=== PATIENT | female | born 1980 | race Caucasian/White ===

== ENCOUNTER 2017-01-03 10:11 | Emergency (ER) | payer OTHER ==
[~2017-01-03 10:11] MED LIST: ACET-704 PO; CEPH-264 PO; CHOL10002 PO; CYCL5TAB PO; FERR325T31 PO; HYDR-2666 PO; IBUP-1060 PO; MILN50TA PO; ONDA4TAB10 SL; PHEN-318 PO; PREG75CA PO; PROP40TA PO; SULF1TAB24 PO; UBID10CA5 PO; ZINC10LO4 PO
[2017-01-03] MEDS ORDERED: ONDANSETRON PF 4 MG/2 ML VIAL. IV ONE (10:45)
[2017-01-03] MEDS ORDERED: IV NORMAL SALINE 1000ML BAG 1,000 ML IV ONE (11:00)
[2017-01-03 11:10] LABS: BILIRUBIN,URINE NEGATIVE (NEG); GLUCOSE,URINE NEGATIVE (NEG); NITRITE,URINE NEGATIVE (NEG); PH,URINE 6.5; PROTEIN,URINE NEGATIVE (NEG-TRACE)
[2017-01-03 11:14] LABS: BASO # 0.1 x10^3/uL (0.0-0.2); BASO % 1 % (0-3); EOS % 1 % (0-3); HEMATOCRIT 43.1 % (36.0-47.0); HEMOGLOBIN 14.8 g/dL (12.0-15.5); LYMPH # 2.3 x10^3/uL (1.0-4.8); LYMPH % 24 % (24-48); MEAN CORPUSCULAR HEMOGLOBIN 33 pg (25-35); MEAN CORPUSCULAR HGB CONC 34 g/dL (31-37); MEAN CORPUSCULAR VOLUME 95 fL (79-100); MONO % 3 % (0-9); NEUT % 71 % (31-73); PLATELET COUNT 158 x10^3/uL (140-400); RED BLOOD COUNT 4.55 x10^6/uL (3.50-5.40); RED CELL DISTRIBUTION WIDTH 12.6 % (11.5-14.5); WHITE BLOOD COUNT 9.9 x10^3/uL (4.0-11.0)
[2017-01-03 11:19] LABS: RBC,URINE 0 /HPF (0-2); WBC,URINE 0 /HPF (0-4)
[2017-01-03 11:20] LABS: BACTERIA,URINE 0 /HPF (0-FEW); SQUAMOUS EPITHELIAL CELL,UR MOD /LPF
[2017-01-03 11:22] LABS: CALCIUM 9.2 mg/dL (8.5-10.1); CREATININE 0.8 mg/dL (0.6-1.0); GFR 81.6; POTASSIUM 3.9 mmol/L (3.5-5.1)
--- NOTE | 2017-01-03 11:50 | RAD ---
Indication fall, pain. An AP view of the pelvis as well as a targeted AP view and a frog leg view of the left hip were obtained. AP view of the pelvis appears unremarkable. A probable bone island is noted associated with the left ischium. Targeted views of the left hip show no additional finding. No acute bony finding is seen. IMPRESSION: No acute bony finding
[2017-01-03] MEDS ORDERED: ONDA4TAB7 PO (11:57)
[2017-01-03] MEDS ORDERED: HYDR-971 PO (11:57)
--- NOTE | 2017-01-03 11:58 | PHYS DOC ---
Past Medical History Past Medical History: Anxiety, Cancer, Depression, Endometriosis, Fibromyalgia , Migraines, UTI, Other Additional Past Medical Histor: vitamin B12 D deficiency,ovarian cancer muscle spasms,IBS Past Surgical History: Appendectomy, Tonsillectomy, Other Additional Past Surgical Histo: laparoscopy, D&C, R ovary and tube removed Additional Information: 0.25 PPD Alcohol Use: None Drug Use: None Adult General Chief Complaint Chief Complaint: MECHANICAL FALL HPI HPI 36-year-old female states she slipped and fell in the bathtub today injuring her left hip and left side of her chest. She states the pain in her chest is much worse with any movement or deep inspiration. She states her hip is very sore but she was able to stand on it for a brief period of time. She did not hit her head or lose consciousness. She states she has been feeling weak and dizzy and a little nauseous. She denies any fever chills or sweats. [] Review of Systems Review of Systems Constitutional: Denies fever or chills [] Eyes: Denies change in visual acuity, redness, or eye pain [] HENT: Denies nasal congestion or sore throat [] Respiratory: Denies cough or shortness of breath [] Cardiovascular: No additional information not addressed in HPI [] GI: Per history of present illness [] : Denies dysuria or hematuria [] Musculoskeletal: Per history of present illness [] Integument: Denies rash or skin lesions [] Neurologic: Denies headache, focal weakness or sensory changes [] Endocrine: Denies polyuria or polydipsia [] Current Medications Current Medications Current Medications Medications (Trade) Dose Ordered Sig/Mejia Start Time Stop Time Status Last Admin Dose Admin Ondansetron HCl (Zofran) 4 mg 1X ONCE 01/03/17 10:45 01/03/17 10:46 DC 01/03/17 11:03 4 MG Sodium Chloride (Iv Sodium Chloride 0.9% 1000ml Bag) 1,000 ml @ 1,000 mls/hr 1X ONCE 01/03/17 11:00 01/03/17 11:59 01/03/17 11:02 1,000 MLS/HR Allergies Allergies Allergies Coded Allergies Type Severity Reaction Last Updated Verified aspirin Allergy Intermediate 04/26/16 Yes peanut Allergy Intermediate 04/26/16 No tramadol Allergy Intermediate 04/26/16 Yes varenicline Allergy Intermediate 04/26/16 Yes Physical Exam Physical Exam Constitutional: Well developed, well nourished, no acute distress, non-toxic appearance. [] HENT: Normocephalic, atraumatic, bilateral external ears normal, oropharynx moist, no oral exudates, nose normal. [] Eyes: PERRLA, EOMI, conjunctiva normal, no discharge. [] Neck: Normal range of motion, no tenderness, supple, no stridor. [] Cardiovascular:Heart rate regular rhythm, no murmur [] Lungs & Thorax: Bilateral breath sounds clear to auscultation , left chest tender to palp no crepitus [] Abdomen: Bowel sounds normal, soft, no tenderness, no masses, no pulsatile masses. [] Skin: Warm, dry, no erythema, no rash. [] Back: No tenderness, no CVA tenderness. [] Extremities: Left hip is mildly tender to palpable over the greater trochanter there is no obvious deformity or leg shortening [] Neurologic: Alert and oriented X 3, normal motor function, normal sensory function, no focal deficits noted. [] Psychologic: Anxious. [] Current Patient Data Vital Signs Vital Signs Date Time Temp Pulse Resp B/P Pulse Ox O2 Delivery O2 Flow Rate FiO2 01/03/17 10:11 98.7 84 20 136/73 100 Room Air 98.7 Lab Values Laboratory Tests Test 01/03/17 10:39 01/03/17 10:53 01/03/17 11:03 Urine Collection Type U cath Urine Color Yellow Urine Clarity Clear Urine pH 6.5 Urine Specific [place] 1.010 Urine Protein Negativemg/dL (NEG-TRACE) Urine Glucose (UA) Negativemg/dL (NEG) Urine Ketones (Stick) Negativemg/dL (NEG) Urine Blood Negative (NEG) Urine Nitrite Negative (NEG) Urine Bilirubin Negative (NEG) Urine Urobilinogen Dipstick 1.0mg/dL (0.2 mg/dL) Urine Leukocyte Esterase Negative (NEG) Urine RBC 0/HPF (0-2) Urine WBC 0/HPF (0-4) Urine Squamous Epithelial Cells Mod/LPF Urine Transitional Epithelial Cells Occ/LPF Urine Bacteria 0/HPF (0-FEW) POC Urine HCG, Qualitative Hcg negative (Negative) White Blood Count 9.9x10^3/uL (4.0-11.0) Red Blood Count 4.55x10^6/uL (3.50-5.40) Hemoglobin 14.8g/dL (12.0-15.5) Hematocrit 43.1% (36.0-47.0) Mean Corpuscular Volume 95fL (79-100) Mean Corpuscular Hemoglobin 33pg (25-35) Mean Corpuscular Hemoglobin Concent 34g/dL (31-37) Red Cell Distribution Width 12.6% (11.5-14.5) Platelet Count 158x10^3/uL (140-400) Neutrophils (%) (Auto) 71% (31-73) Lymphocytes (%) (Auto) 24% (24-48) Monocytes (%) (Auto) 3% (0-9) Eosinophils (%) (Auto) 1% (0-3) Basophils (%) (Auto) 1% (0-3) Neutrophils # (Auto) 7.1x10^3uL (1.8-7.7) Lymphocytes # (Auto) 2.3x10^3/uL (1.0-4.8) Monocytes # (Auto) 0.3x10^3/uL (0.0-1.1) Eosinophils # (Auto) 0.1x10^3/uL (0.0-0.7) Basophils # (Auto) 0.1x10^3/uL (0.0-0.2) Sodium Level 142mmol/L (136-145) Potassium Level 3.9mmol/L (3.5-5.1) Chloride Level 107mmol/L (98-107) Carbon Dioxide Level 26mmol/L (21-32) Anion Gap 9 (6-14) Blood Urea Nitrogen 6mg/dL (7-20) L Creatinine 0.8mg/dL (0.6-1.0) Estimated GFR (Cockcroft-Gault) 81.6 Glucose Level 92mg/dL (70-99) Calcium Level 9.2mg/dL (8.5-10.1) Laboratory Tests 01/03/17 11:03 Laboratory Tests 01/03/17 11:03 EKG EKG [] Radiology/Procedures Radiology/Procedures []PROCEDURE: RIBS LEFT AND PA CHEST Indication fall, pain. AP view of the chest was obtained and is compared to an examination 04/27/2016. Films targeted to left ribs were also obtained. The chest is unremarkable. Heart size and pulmonary vessels are normal. The lungs are clear. There is no pleural fluid. There is no pneumothorax. Films targeted left ribs appear normal. IMPRESSION: Normal single view of the chest. Normal plain films left ribs. Impressions: PROCEDURE: HIP LEFT 2V WITH PELVIS Indication fall, pain. An AP view of the pelvis as well as a targeted AP view and a frog leg view of the left hip were obtained. AP view of the pelvis appears unremarkable. A probable bone island is noted associated with the left ischium. Targeted views of the left hip show no additional finding. No acute bony finding is seen. IMPRESSION: No acute bony finding Course & Med Decision Making Course & Med Decision Making Pertinent Labs and Imaging studies reviewed. (See chart for details) [] Dragon Disclaimer Dragon Disclaimer This electronic medical record was generated, in whole or in part, using a voice recognition dictation system. Departure Departure Impression: Primary Impression: Contusion of left hip Additional Impressions: Chest wall contusion Generalized weakness Nausea Disposition: 01 HOME, SELF-CARE Condition: STABLE Referrals: MIRIAM GOMEZ (PCP) Patient Instructions: Contusion, Nausea, Adult Additional Instructions: Thank you for allowing us to participate in your care today. Followup with your primary care physician in 3 days if your symptoms do not improve. Return to the emergency department you have any new or concerning findings. This should be evaluated by the primary care physician and any necessary consulting services for continued management within a few days after discharge. Return to emergency room if you have any new or concerning symptoms including but not limited to fever, chills, nausea, vomiting, intractable pain, any new rashes, chest pain, shortness of air, uncontrolled bleeding, difficulty breathing, and/or vision loss. You may have been prescribed medication that can change in your level of thinking and ability to operate machinery. These medications include hydrocodone and Ativan. Also, Benadryl has been known to do this as well. Be sure to check with your pharmacist and ask if the medications you've prescribed can affect your level of consciousness. I recommend not operating heavy machinery or driving while on medication such as these. Scripts Ondansetron Hcl (Zofran)4 Mg Tablet1 Tab PO Q8HRS PRN NAUSEA #20 TAB Prov:NO FORDE DO 01/03/17 Hydrocodone/Apap 5-325 ([place] 5-325 Tablet)1 Each Tablet1 Tab PO PRN Q6HRS PRN PAIN #20 TAB Prov:NO FORDE DO 01/03/17 Problem Qualifiers Primary Impression: Contusion of left hip Encounter type: initial encounter Qualified Code: S70.02XA - Contusion of left hip, initial encounter Additional Impressions: Chest wall contusion Encounter type: initial encounter Laterality: left Qualified Code: S20.212A - Contusion of left front wall of thorax, initial encounter NO FORDE DO Jan 03, 2017 11:58
[2017-01-03 12:07] VITALS: BP 149/83
[2017-01-03] MEDS ORDERED: FENTANYL PF 100 MCG/2 ML VIAL. ONE (12:07)
[2017-01-03] MEDS ORDERED: FENTANYL PF 100 MCG/2 ML VIAL. IV ONE (12:30)
== END 2017-01-03 12:21 | disposition home or self-care (01) ==
LOC: ER 10:11
DX: S70.02XA Contusion of left hip, initial encounter (principal); S20.212A Contusion of left front wall of thorax, initial encounter; R11.0 Nausea; R53.1 Weakness; F32.9 Major depressive disorder, single episode, unspecified; K58.9 Irritable bowel syndrome, unspecified; F41.9 Anxiety disorder, unspecified; M79.7 Fibromyalgia; G43.909 Migraine, unspecified, not intractable, without status migrainosus; Z87.440 Personal history of urinary (tract) infections; Z90.49 Acquired absence of other specified parts of digestive tract; Z98.890 Other specified postprocedural states; F17.200 Nicotine dependence, unspecified, uncomplicated; Z88.6 Allergy status to analgesic agent; Z88.8 Allergy status to other drugs, medicaments and biological substances; Z91.010 Allergy to peanuts; W18.2XXA Fall in (into) shower or empty bathtub, initial encounter; Y93.89 Activity, other specified; Y92.89 Other specified places as the place of occurrence of the external cause; Y99.8 Other external cause status
CPT/HCPCS: 36415; 71101; 73502; 80048; 81001; 81025; 85027; 96361; 96374; 96375; 99285; J2405; J3010; J7030

== ENCOUNTER 2017-02-11 06:13 | Emergency (ER) | payer OTHER ==
[~2017-02-11] VITALS: Ht 162.6 cm; Wt 72.6 kg
[~2017-02-11 06:13] MED LIST changes: +HYDR-971 PO; +ONDA4TAB7 PO
--- NOTE | 2017-02-11 06:37 | EKG ---
[facility] [address] [place] [address] Test Date: 2017-02-11 Test Time: 06:21:16 Pat Name: JUMA GREENE Department: Room: Gender: F Senior Net Engineer: : 1980 Requested By: TIFFANY COOL Order Number: [id number] Reading MD: Radha Bishop Measurements Intervals [place] Rate: 90 P: 41 OH: 148 QRS: -1 QRSD: 82 T: 9 QT: 364 QTc: 449 Interpretive Statements SINUS RHYTHM LEFT ATRIAL ABNORMALITY LEFTWARD AXIS INCOMPLETE RIGHT BUNDLE BRANCH BLOCK ABNORMAL ECG Electronically Signed On 02-14-2017 18:15:46 CDT by Radha Bishop
--- NOTE | 2017-02-11 06:40 | PHYS DOC ---
Past Medical History Past Medical History: Anxiety, Cancer, Depression, Endometriosis, Fibromyalgia , Migraines, UTI, Other Additional Past Medical Histor: vitamin B12 D deficiency,ovarian cancer muscle spasms,IBS Past Surgical History: Appendectomy, Tonsillectomy, Other Additional Past Surgical Histo: laparoscopy, D&C, R ovary and tube removed Alcohol Use: Rarely Drug Use: None Adult General Chief Complaint Chief Complaint: ANXIETY/PANIC ATTACK HPI HPI Patient is a 36 year old female who presents with anxiety. Patient states she feels like she is "having a really bad anxiety attack." She reports history of anxiety for which she recently started taking vistaril, this morning with increased symptoms as well as onset of chest pain when she awoke in the middle of the night. States pain is sharp, left sided, constant, nonradiating. She has had tension in her neck & back with aching discomfort present constantly for the past 3 days. Reports shortness of breath & nausea, denies diaphoresis. Denies fevers/chills, cough, vomiting, lower extremity pain/swelling. Denies suicidal or homicidal ideation. Reports life stress related to relationship with her ex. Denies use of drugs or alcohol. PCP is Dr. Parker. Review of Systems Review of Systems Constitutional: Denies fever or chills Eyes: Denies change in visual acuity HENT: Denies nasal congestion or sore throat Respiratory: Denies cough, reports shortness of breath Cardiovascular: Reports chest pain, denies edema GI: Nausea. Denies abdominal pain, vomiting, bloody stools or diarrhea : Denies dysuria or hematuria Musculoskeletal: Reports neck and back tightness. Denies joint pain Integument: Denies rash or skin lesions Neurologic: Denies headache, focal weakness or sensory changes Current Medications Current Medications Current Medications Medications (Trade) Dose Ordered Sig/Mejia Start Time Stop Time Status Last Admin Dose Admin Acetaminophen (Tylenol) 650 mg 1X ONCE 02/11/17 07:00 02/11/17 07:01 DC 02/11/17 06:47 650 MG Lorazepam (Ativan) 1 mg 1X ONCE 02/11/17 07:30 02/11/17 07:31 DC 02/11/17 07:36 1 MG Ondansetron HCl (Zofran) 4 mg 1X ONCE 02/11/17 07:00 02/11/17 07:01 DC 02/11/17 06:48 4 MG Allergies Allergies Allergies Coded Allergies Type Severity Reaction Last Updated Verified aspirin Allergy Intermediate 04/26/16 Yes peanut Allergy Intermediate 04/26/16 No tramadol Allergy Intermediate 04/26/16 Yes varenicline Allergy Intermediate 04/26/16 Yes Physical Exam Physical Exam Constitutional: Well developed, well nourished, no acute distress, non-toxic appearance. HENT: Normocephalic, atraumatic, bilateral external ears normal, oropharynx moist, nose normal. Eyes: conjunctiva normal, no discharge. Neck: supple, no stridor. Cardiovascular: RRR, no murmurs, no edema. Lungs & Thorax: LCTAB, no wheezing, no respiratory distress. reproducible tenderness with palpation over left anterior chest wall. Abdomen: soft, nontender, nondistended. Skin: Warm, dry, no erythema, no rash. Back: No focal spinal or CVA tenderness. Extremities: No tenderness, no edema. no calf tenderness or swelling. Neurologic: Alert and oriented X 3, no focal deficits noted. Psychologic: Affect normal, judgement normal, mood normal. Current Patient Data Vital Signs Vital Signs Date Time Temp Pulse Resp B/P Pulse Ox O2 Delivery O2 Flow Rate FiO2 02/11/17 06:15 99.5 91 18 146/80 97 Room Air 99.5 Lab Values Laboratory Tests Test 02/11/17 05:55 02/11/17 06:25 POC Urine HCG, Qualitative Hcg negative (Negative) White Blood Count 11.1x10^3/uL (4.0-11.0) H Red Blood Count 4.51x10^6/uL (3.50-5.40) Hemoglobin 14.5g/dL (12.0-15.5) Hematocrit 41.9% (36.0-47.0) Mean Corpuscular Volume 93fL (79-100) Mean Corpuscular Hemoglobin 32pg (25-35) Mean Corpuscular Hemoglobin Concent 35g/dL (31-37) Red Cell Distribution Width 13.1% (11.5-14.5) Platelet Count 176x10^3/uL (140-400) Neutrophils (%) (Auto) 59% (31-73) Lymphocytes (%) (Auto) 34% (24-48) Monocytes (%) (Auto) 5% (0-9) Eosinophils (%) (Auto) 2% (0-3) Basophils (%) (Auto) 1% (0-3) Neutrophils # (Auto) 6.5x10^3uL (1.8-7.7) Lymphocytes # (Auto) 3.7x10^3/uL (1.0-4.8) Monocytes # (Auto) 0.5x10^3/uL (0.0-1.1) Eosinophils # (Auto) 0.2x10^3/uL (0.0-0.7) Basophils # (Auto) 0.1x10^3/uL (0.0-0.2) Sodium Level 140mmol/L (136-145) Potassium Level 3.9mmol/L (3.5-5.1) Chloride Level 106mmol/L (98-107) Carbon Dioxide Level 24mmol/L (21-32) Anion Gap 10 (6-14) Blood Urea Nitrogen 7mg/dL (7-20) Creatinine 0.8mg/dL (0.6-1.0) Estimated GFR (Cockcroft-Gault) 81.6 Glucose Level 84mg/dL (70-99) Calcium Level 8.9mg/dL (8.5-10.1) Troponin I Quantitative < 0.017ng/mL (0.000-0.055) Laboratory Tests 02/11/17 06:25 Laboratory Tests 02/11/17 06:25 EKG EKG interpreted by me: NSR rate 90, no acute ST/T wave changes, normal intervals, no ectopy.[] Radiology/Procedures Radiology/Procedures PROCEDURE: CHEST AP ONLY EXAM: Chest, single view. HISTORY: Chest pain. COMPARISON: 01/03/2017. FINDINGS: A frontal view of the chest is obtained. There is no infiltrate, effusion or pneumothorax. The heart is normal in size. There is a suspected calcified granuloma overlying the right midlung.. IMPRESSION: No acute pulmonary finding. DICTATED and SIGNED BY: AKHIL GONZALES MD DATE: 02/11/17 0705 [] Course & Med Decision Making Course & Med Decision Making Pertinent Labs and Imaging studies reviewed. (See chart for details) Patient presents for anxiety with chest pain. She is well appearing, resting comfortably in bed, not suicidal, vitals stable. PERC is 0, symptoms atypical for ACS. Gave Ativan for anxiety as well as Tylenol for chest pain. She felt better, remained stable throughout time in the emergency department. No evidence of acute cardiac or pulmonary process. Recommend rest, Tylenol or ibuprofen as needed for pain, continue Vistaril as prescribed by primary care physician. Follow-up within 2-3 days with primary care for additional anxiety management. Return to the emergency department for severe chest pain or shortness of breath, suicidal ideation, any otherwise worsening condition. Discharged home in stable condition. [] Dragon Disclaimer Dragon Disclaimer This electronic medical record was generated, in whole or in part, using a voice recognition dictation system. Departure Departure Impression: Primary Impression: Anxiety Additional Impression: Chest pain Disposition: HOME, SELF-CARE Condition: STABLE Referrals: MIRIAM GOMEZ (PCP) Patient Instructions: Anxiety and Panic Attacks, [id number], Chest Pain ( Nonspecific), [id number] Additional Instructions: You were seen in the emergency department today for anxiety and chest pain. Tests did not show serious cause of chest pain. Please rest, continue taking medication as prescribed by your doctor, use Tylenol or ibuprofen as needed for pain. Follow-up within 2-3 days with primary care physician if anxiety continues to be severe. Return to the emergency department for severe chest pain or shortness of breath, suicidal thoughts, any otherwise worsening condition. Problem Qualifiers TIFFANY COOL MD Feb 11, 2017 06:40
[2017-02-11 06:41] LABS: BASO # 0.1 x10^3/uL (0.0-0.2); BASO % 1 % (0-3); EOS % 2 % (0-3); HEMATOCRIT 41.9 % (36.0-47.0); HEMOGLOBIN 14.5 g/dL (12.0-15.5); LYMPH # 3.7 x10^3/uL (1.0-4.8); LYMPH % 34 % (24-48); MEAN CORPUSCULAR HEMOGLOBIN 32 pg (25-35); MEAN CORPUSCULAR HGB CONC 35 g/dL (31-37); MEAN CORPUSCULAR VOLUME 93 fL (79-100); MONO % 5 % (0-9); NEUT % 59 % (31-73); PLATELET COUNT 176 x10^3/uL (140-400); RED BLOOD COUNT 4.51 x10^6/uL (3.50-5.40); RED CELL DISTRIBUTION WIDTH 13.1 % (11.5-14.5); WHITE BLOOD COUNT 11.1 x10^3/uL (4.0-11.0)
[2017-02-11 06:51] LABS: CALCIUM 8.9 mg/dL (8.5-10.1); CREATININE 0.8 mg/dL (0.6-1.0); GFR 81.6; POTASSIUM 3.9 mmol/L (3.5-5.1)
[2017-02-11] MEDS ORDERED: ONDANSETRON PF 4 MG/2 ML VIAL. IV ONE (07:00)
[2017-02-11] MEDS ORDERED: LORAZEPAM 2 MG/ML VIAL IV ONE (07:00)
[2017-02-11] MEDS ORDERED: ACETAMINOPHEN 325 MG TABLET. PO ONE (07:00)
--- NOTE | 2017-02-11 07:16 | RAD ---
EXAM: Chest, single view. HISTORY: Chest pain. COMPARISON: 01/03/2017. FINDINGS: A frontal view of the chest is obtained. There is no infiltrate, effusion or pneumothorax. The heart is normal in size. There is a suspected calcified granuloma overlying the right midlung.. IMPRESSION: No acute pulmonary finding.
[2017-02-11 07:30] VITALS: BP 107/58
[2017-02-11] MEDS ORDERED: LORAZEPAM 1 MG TABLET. PO ONE (07:30)
== END 2017-02-11 07:45 | disposition home or self-care (01) ==
LOC: ER 06:13
DX: F41.9 Anxiety disorder, unspecified (principal); R07.89 Other chest pain; R06.02 Shortness of breath; R11.0 Nausea; M54.2 Cervicalgia; M54.9 Dorsalgia, unspecified; F32.9 Major depressive disorder, single episode, unspecified; M79.7 Fibromyalgia; G43.909 Migraine, unspecified, not intractable, without status migrainosus; K58.9 Irritable bowel syndrome, unspecified; Z87.440 Personal history of urinary (tract) infections; Z79.899 Other long term (current) drug therapy; Z91.010 Allergy to peanuts; Z88.5 Allergy status to narcotic agent; Z88.6 Allergy status to analgesic agent; Z88.8 Allergy status to other drugs, medicaments and biological substances
CPT/HCPCS: 36415; 71010; 80048; 81025; 84484; 85027; 93005; 96374; 96375; 99285; J2060; J2405

== ENCOUNTER 2017-03-22 03:05 | Emergency (ER) | payer SELFPAY ==
[~2017-03-22] VITALS: Ht 165.1 cm; Wt 88.0 kg
[2017-03-22 03:08] VITALS: BP 153/98
--- NOTE | 2017-03-22 03:31 | PHYS DOC ---
Past Medical History Past Medical History: Anxiety, Cancer, Depression, Endometriosis, Fibromyalgia , Hypothyroid, Migraines, UTI, Other Additional Past Medical Histor: vitamin B12 D deficiency,ovarian cancer muscle spasms,IBS Past Surgical History: Appendectomy, Tonsillectomy, Other Additional Past Surgical Histo: laparoscopy, D&C, R ovary and tube removed Alcohol Use: Rarely Drug Use: None Adult General Chief Complaint Chief Complaint: MULTIPLE COMPLAINTS HPI HPI Patient is a 36 year old female who presents here today secondary to a dry ' tightness'sensation to the back of her throat that started this evening when she woke up. Patient also reports that she's had fatigue and weakness the hospital for approximately 1 month now. Patient reports that she seen his her doctor he's been working her up extensively. Patient reports that her thyroid level was low when he started her on thyroid medication and told her to take about 3 months to see if that was the cause. Patient denies any fevers shakes chills. Patient denies any vomiting or diarrhea. Patient denies any decreased by mouth intake. Patient reports that she's can about 40 pounds in the last 3 weeks. Patient reports that she has some nonproductive cough. Patient reports that she been nervous about the wishes been feeling associated smoking a lot of cigarettes the last couple weeks. Patient reports she has a history of fibromyalgia. She has physical exam is unremarkable the ER. Patient's alert awake and oriented 3. Abdomen was soft nontender no rebound or guarding. Patient's HEENT exam was normal. Patient oropharynx is clear. It is mildly erythematous/dry. Patient's breath smelled extensively like tobacco which is consistent with the amount of smoking she reports she's been doing. Stridor. No lymphadenopathy. There is no uvular edema. There is no exudates. There is no other abnormalities noted on her exam. A/P this is a 36-year-old female who presented to the ER today secondary to a funny sensation in her throat. Etiology is unclear. Her throat does appear to be currently dry. I was concerned that it might also be related to smoking less irritable last couple weeks. I wonder if the increased tobacco/smoking. 2. Have advised patient back in her tobacco intake and to follow-up with her doctor. I discussed with the patient I would like to draw labs on her to evaluate her weakness however she is declining to allow us to draw labs and she was to see her doctor tomorrow and she knows any withdrawal (anyway she'll get stuck twice. I told the patient I would respect her decision although I would be unable to rule out any acute pathology in her blood work. Patient's vital signs are within normal limits. I will allow the patient to make this decision on her own with the understanding that there might be some things that might be missed during her ER evaluation. Patient feels very comfortable with this plan. Review of Systems Review of Systems Constitutional: Denies fever or chills [] Eyes: Denies change in visual acuity, redness, or eye pain [] All other review systems are negative except as documented in the history of present illness portion. Allergies Allergies Allergies Coded Allergies Type Severity Reaction Last Updated Verified aspirin Allergy Intermediate 04/26/16 Yes peanut Allergy Intermediate 04/26/16 No tramadol Allergy Intermediate 04/26/16 Yes varenicline Allergy Intermediate 04/26/16 Yes Physical Exam Physical Exam Constitutional: Well developed, well nourished, no acute distress, non-toxic appearance. [] HENT: Normocephalic, atraumatic, bilateral external ears normal, oropharynx moist, no oral exudates, nose normal. [] Eyes: PERRLA, EOMI, conjunctiva normal, no discharge. [] Neck: Normal range of motion, no tenderness, supple, no stridor. [] Cardiovascular:Heart rate regular rhythm, no murmur [] Lungs & Thorax: Bilateral breath sounds clear to auscultation [] Abdomen: Bowel sounds normal, soft, no tenderness, no masses, no pulsatile masses. [] Skin: Warm, dry, no erythema, no rash. [] Back: No tenderness, no CVA tenderness. [] Extremities: No tenderness, no cyanosis, no clubbing, ROM intact, no edema. [] Neurologic: Alert and oriented X 3, normal motor function, normal sensory function, no focal deficits noted. [] Psychologic: Affect normal, judgement normal, mood normal. [] Current Patient Data Vital Signs Vital Signs Date Time Temp Pulse Resp B/P (MAP) Pulse Ox O2 Delivery O2 Flow Rate FiO2 03/22/17 03:08 98.2 98 20 96 Room Air 98.2 EKG EKG [] Radiology/Procedures Radiology/Procedures [] Course & Med Decision Making Course & Med Decision Making Pertinent Labs and Imaging studies reviewed. (See chart for details) [] Dragon Disclaimer Dragon Disclaimer This electronic medical record was generated, in whole or in part, using a voice recognition dictation system. Departure Departure Impression: Primary Impression: Throat tightness Additional Impression: Fatigue Disposition: 01 HOME, SELF-CARE Condition: STABLE Referrals: MIRIAM GOMEZ (PCP) Patient Instructions: Weakness, [id number] Additional Instructions: Please follow up with her doctors planned tomorrow. Return to the ER. Any further concerns. Problem Qualifiers LOREN CORNELIUS MD March 22, 2017 03:31
== END 2017-03-22 03:36 | disposition home or self-care (01) ==
LOC: ER 03:05
DX: R09.89 Other specified symptoms and signs involving the circulatory and respiratory systems (principal); R53.83 Other fatigue; R05 Cough; E03.9 Hypothyroidism, unspecified; M79.7 Fibromyalgia; K58.9 Irritable bowel syndrome, unspecified; G43.909 Migraine, unspecified, not intractable, without status migrainosus; Z90.49 Acquired absence of other specified parts of digestive tract; Z87.440 Personal history of urinary (tract) infections; Z88.6 Allergy status to analgesic agent; Z91.010 Allergy to peanuts; Z88.8 Allergy status to other drugs, medicaments and biological substances
CPT/HCPCS: 99283

== ENCOUNTER 2017-08-30 11:21 | Emergency (ER) | payer OTHER ==
[~2017-08-30] VITALS: Ht 162.6 cm; Wt 88.0 kg
[~2017-08-30 11:21] MED LIST changes: +FERR-36 PO; -FERR325T31 PO; -HYDR-2666 PO; +HYDR-2758 PO
[2017-08-30] MEDS ORDERED: IV NORMAL SALINE 1000ML BAG 1,000 ML IV SCH (12:00)
[2017-08-30] MEDS ORDERED: 0.9 % SODIUM CHLORIDE 10 ML DISP.SYRIN. IV PRN (12:00)
[2017-08-30 12:17] LABS: BASO % 1 % (0-3); EOS % 1 % (0-3); HEMATOCRIT 41.6 % (36.0-47.0); HEMOGLOBIN 14.3 g/dL (12.0-15.5); LYMPH # 2.1 x10^3/uL (1.0-4.8); LYMPH % 27 % (24-48); MEAN CORPUSCULAR HEMOGLOBIN 32 pg (25-35); MEAN CORPUSCULAR HGB CONC 34 g/dL (31-37); MEAN CORPUSCULAR VOLUME 93 fL (79-100); MONO % 4 % (0-9); NEUT % 67 % (31-73); PLATELET COUNT 192 x10^3/uL (140-400); RED BLOOD COUNT 4.46 x10^6/uL (3.50-5.40); RED CELL DISTRIBUTION WIDTH 13.2 % (11.5-14.5); WHITE BLOOD COUNT 7.7 x10^3/uL (4.0-11.0)
[2017-08-30 12:17] LABS: BILIRUBIN,URINE NEGATIVE (NEG); GLUCOSE,URINE NEGATIVE (NEG); NITRITE,URINE NEGATIVE (NEG); PH,URINE 6.5; PROTEIN,URINE NEGATIVE (NEG-TRACE); UROBILINOGEN,URINE 0.2 mg/dL (0.2 mg/dL)
[2017-08-30 12:22] LABS: BARBITURATES NEG (NEG); BENZODIAZEPINES POS (NEG); CANNABINOIDS NEG (NEG); COCAINE NEG (NEG); METHADONE NEG (NEG); OPIATES NEG (NEG); PHENCYCLIDINE NEG (NEG)
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
[2017-08-30 12:31] LABS: BACTERIA,URINE MANY /HPF (0-FEW); RBC,URINE OCC /HPF (0-2); SQUAMOUS EPITHELIAL CELL,UR MOD /LPF
[2017-08-30 12:31] LABS: ANION GAP 10 (6-14); BLOOD UREA NITROGEN 9 mg/dL (7-20); CALCIUM 9.1 mg/dL (8.5-10.1); CARBON DIOXIDE 27 mmol/L (21-32); CHLORIDE 106 mmol/L (98-107); CREATININE 0.8 mg/dL (0.6-1.0); GFR 81.2; GLUCOSE 105 mg/dL (70-99); POTASSIUM 3.5 mmol/L (3.5-5.1); SODIUM 143 mmol/L (136-145)
[2017-08-30 12:37] LABS: ALBUMIN 3.5 g/dL (3.4-5.0); ALK PHOS 69 U/L (46-116); ALT (SGPT) 18 U/L (14-59); AST (SGOT) 13 U/L (15-37); DIRECT BILIRUBIN < 0.1 mg/dL (0.0-0.2); ETHANOL < 10 mg/dL (0-10); MAGNESIUM 1.7 mg/dL (1.8-2.4); TOTAL BILIRUBIN 0.2 mg/dL (0.2-1.0); TOTAL PROTEIN 7.3 g/dL (6.4-8.2)
--- NOTE | 2017-08-30 12:57 | RAD ---
Indication chest pain. Overdose. A single view of the chest was obtained. Comparison is made to an exam 02/11/2017. The heart and pulmonary vessels appear normal. The lungs are clear. There has not been a significant change compared to the previous exam. IMPRESSION: No acute or focal process seen in the chest
[2017-08-30] MEDS ORDERED: ONDA4TAB10 PO (13:28)
[2017-08-30] MEDS ORDERED: ONDANSETRON PF 4 MG/2 ML VIAL. IV ONE (13:30)
[2017-08-30 13:38] VITALS: BP 128/72
--- NOTE | 2017-08-30 13:40 | EKG ---
[facility] [address] [place] [address] Test Date: 2017-08-30 Test Time: 12:38:39 Pat Name: JUMA GREENE Department: Room: Gender: F Job Lithographer: : 1980 Requested By: MATA DOWD Order Number: [id number] Reading MD: Measurements Intervals [place] Rate: 60 P: 43 ID: [id number] QRS: 1 QRSD: 84 T: 7 QT: 400 QTc: 404 Interpretive Statements SINUS RHYTHM INCOMPLETE RIGHT BUNDLE BRANCH BLOCK OTHERWISE NORMAL ECG RI6.01 Unconfirmed report No previous ECG available for comparison
== END 2017-08-30 13:59 | disposition home or self-care (01) ==
LOC: ER 11:21
DX: T42.4X2A Poisoning by benzodiazepines, intentional self-harm, initial encounter (principal); F41.9 Anxiety disorder, unspecified; R45.851 Suicidal ideations; K58.9 Irritable bowel syndrome, unspecified; M79.7 Fibromyalgia; E03.9 Hypothyroidism, unspecified; F32.9 Major depressive disorder, single episode, unspecified; Z87.891 Personal history of nicotine dependence; Z88.6 Allergy status to analgesic agent; Z88.8 Allergy status to other drugs, medicaments and biological substances; Z91.010 Allergy to peanuts; Y92.89 Other specified places as the place of occurrence of the external cause
CPT/HCPCS: 36415; 71010; 80048; 80076; 80307; 80329; 81001; 81025; 83735; 84443; 85025; 87086; 93005; 96361; 96374; 99285; G0480; J2405; J7030; G0479

== ENCOUNTER 2017-10-05 12:32 | Emergency (ER) | payer OTHER ==
[~2017-10-05] VITALS: Ht 165.1 cm; Wt 83.9 kg
[~2017-10-05 12:32] MED LIST changes: +ONDA4TAB10 PO
[2017-10-05 12:35] VITALS: BP 170/101
--- NOTE | 2017-10-05 12:53 | PHYS DOC ---
Past Medical History Past Medical History: Anxiety, Cancer, Depression, Endometriosis, Fibromyalgia , Hypothyroid, Migraines, UTI, Other Additional Past Medical Histor: vitamin B12 D deficiency,ovarian cancer, muscle spasms,IBS Past Surgical History: Appendectomy, Tonsillectomy, Other Additional Past Surgical Histo: laparoscopy, D&C, R ovary and tube removed Alcohol Use: Rarely Drug Use: None Adult General Chief Complaint Chief Complaint: HAND PROBLEM HPI HPI Patient is a 37 year old female with a history of fibromyalgia, depression, anxiety, who presents today with moderate generalized right hand pain as well as right hip and pubic pain that began 5 days ago. Patient states she was moving furniture when her hand got smashed between the furniture and the wall as well as her right hip and pubic area. Patient states her pain is worse on range of motion as well as ambulation. She describes the pain as throbbing and constant. Review of Systems Review of Systems Constitutional: Denies fever or chills [] Musculoskeletal: Right hand right hip and pubic area pain Integument: Denies rash or skin lesions [] Neurologic: Denies headache, focal weakness or sensory changes [] All other systems were reviewed and found to be within normal limits, except as documented in this note. Current Medications Current Medications Current Medications Medications (Trade) Dose Ordered Sig/Mejia Start Time Stop Time Status Last Admin Dose Admin Ibuprofen (Motrin) 600 mg 1X ONCE 10/05/17 13:45 10/05/17 13:46 DC 10/05/17 13:36 600 MG Allergies Allergies Allergies Coded Allergies Type Severity Reaction Last Updated Verified aspirin Allergy Intermediate 04/26/16 Yes peanut Allergy Intermediate 04/26/16 No tramadol Allergy Intermediate 04/26/16 Yes varenicline Allergy Intermediate 04/26/16 Yes Physical Exam Physical Exam Constitutional: Well developed, well nourished, no acute distress, non-toxic appearance. [] Skin: Warm, dry, no erythema, no rash. [] Back: No tenderness, no CVA tenderness. [] Extremities: Right hand with no obvious deformity. Tenderness diffusely throughout the hand. Normal range of motion to the right hand and fingers. Adequate radial medial and ulnar sensation to the right hand. +2 right radial pulse. Right hip and to be cared with no deformity. There is bruising noted on the right inner thigh as well as pubic area. Tenderness on the bruised area. Full range of motion to the right hip including flexion and extension and internal rotation and external rotation of the right lower extremity. +2 right pedal pulse. Cap refill less than 2 seconds the right toes. Sensation intact to the right lower extremity. Neurologic: Alert and oriented X 3, normal motor function, normal sensory function, no focal deficits noted. [] Psychologic: Affect normal, judgement normal, mood normal. [] Current Patient Data Vital Signs Vital Signs Date Time Temp Pulse Resp B/P (MAP) Pulse Ox O2 Delivery O2 Flow Rate FiO2 10/05/17 12:35 98.4 82 16 100 Room Air 98.4 EKG EKG [] Radiology/Procedures Radiology/Procedures []PROCEDURE: HAND RIGHT 3V EXAM: Right hand 3 views. HISTORY: Right hand pain and swelling after injury. COMPARISON: None. FINDINGS: No fractures are identified. Joint spaces and alignment are maintained. IMPRESSION: 1. No fracture. DICTATED and SIGNED BY: PARESH PHOENIX MD DATE: 10/05/17 1403 CC: MIRIAM GOMEZ MD; NAZIA WILLOUGHBY APRN; NON,STAFF ~ PROCEDURE: HIP RIGHT 2V WITH PELVIS EXAM: Frontal pelvis with 2V right hip. HISTORY: Right hip pain after injury. COMPARISON: None. FINDINGS: There is a benign bone island in the left ischium. No fractures are identified. There is mildly decreased femoral head/neck offset anteriorly. The joint spaces of both hips are maintained. Stool throughout the colon is consistent with constipation. IMPRESSION: 1. Correlate for mild femoroacetabular impingement on the right. 2. Correlate for constipation. DICTATED and SIGNED BY: PARESH PHOENIX MD DATE: 10/05/17 1402 CC: MIRIAM GOMEZ MD; NAZIA WILLOUGHBY APRN; NON,STAFF ~ Course & Med Decision Making Course & Med Decision Making Pertinent Labs and Imaging studies reviewed. (See chart for details) Patient is in the ED with contusion of the right hand and hip/pubic area from moving furniture. Right hand x-rays as well as right hip with pelvic are negative for any acute findings right hip xray is noted for possible mild femoroacetabular impingement on the right. Patient was instructed to f/u with Ortho. She is noted for constipation. Discharged with diclofenac and cyclobenzaprine. Ice elevation encouraged. Follow-up with Damon in one week. Dragon Disclaimer Dragon Disclaimer This electronic medical record was generated, in whole or in part, using a voice recognition dictation system. Departure Departure Impression: Primary Impression: Contusion of right hip Additional Impressions: Contusion of right hand Constipation Disposition: 01 HOME, SELF-CARE Condition: STABLE Referrals: MIRIAM GOMEZ MD (PCP) VANESSA NGO MD follow up in one week Patient Instructions: Contusion, [id number] Additional Instructions: You were seen with right hand and right hip contusion. Ice elevate the extremity involved. You can use heat if you need to. Take the prescribed medicine as needed for pain. Follow-up with the provided orthopedic doctor or your own doctor in one week. Scripts Diclofenac Sodium (DICLOFENAC SODIUM) 50 Mg Tablet.dr 1 TAB PO BID, #20 TAB 0 Refills Prov: NAZIA WILLOUGHBY APRN 10/05/17 Problem Qualifiers Primary Impression: Contusion of right hip Encounter type: initial encounter Qualified Codes: S70.01XA - Contusion of right hip, initial encounter Additional Impressions: Contusion of right hand Encounter type: initial encounter Qualified Codes: S60.221A - Contusion of right hand, initial encounter Constipation Constipation type: unspecified constipation type Qualified Codes: K59.00 - Constipation, unspecified NAZIA WILLOUGHBY PRECISION LATHE OPERATOR Oct 05, 2017 12:53
[2017-10-05] MEDS ORDERED: IBUPROFEN 600 MG TABLET. PO ONE (13:45)
[2017-10-05] MEDS ORDERED: DICL50TA4 PO (13:56)
--- NOTE | 2017-10-05 14:07 | RAD ---
EXAM: Frontal pelvis with 2V right hip. HISTORY: Right hip pain after injury. COMPARISON: None. FINDINGS: There is a benign bone island in the left ischium. No fractures are identified. There is mildly decreased femoral head/neck offset anteriorly. The joint spaces of both hips are maintained. Stool throughout the colon is consistent with constipation. IMPRESSION: 1. Correlate for mild femoroacetabular impingement on the right. 2. Correlate for constipation.
--- NOTE | 2017-10-05 14:09 | RAD ---
EXAM: Right hand 3 views. HISTORY: Right hand pain and swelling after injury. COMPARISON: None. FINDINGS: No fractures are identified. Joint spaces and alignment are maintained. IMPRESSION: 1. No fracture.
== END 2017-10-05 14:05 | disposition home or self-care (01) ==
LOC: ER 12:32
DX: S70.01XA Contusion of right hip, initial encounter (principal); S60.221A Contusion of right hand, initial encounter; S70.11XA Contusion of right thigh, initial encounter; K59.00 Constipation, unspecified; F41.9 Anxiety disorder, unspecified; F32.9 Major depressive disorder, single episode, unspecified; M79.7 Fibromyalgia; E03.9 Hypothyroidism, unspecified; K58.9 Irritable bowel syndrome, unspecified; G43.909 Migraine, unspecified, not intractable, without status migrainosus; Z87.440 Personal history of urinary (tract) infections; Z90.49 Acquired absence of other specified parts of digestive tract; Z88.6 Allergy status to analgesic agent; Z88.5 Allergy status to narcotic agent; Z88.8 Allergy status to other drugs, medicaments and biological substances; Z91.010 Allergy to peanuts; W23.0XXA Caught, crushed, jammed, or pinched between moving objects, initial encounter; Y93.89 Activity, other specified; Y92.89 Other specified places as the place of occurrence of the external cause; Y99.8 Other external cause status
CPT/HCPCS: 73130; 73502; 99284

== ENCOUNTER → 2018-06-16 | Outpatient (CLI) | payer OTHER | END | disposition home or self-care (01) | LOC: KCIC 15:34 | DX: M25.552 Pain in left hip (principal); G89.29 Other chronic pain; I10 Essential (primary) hypertension; E03.9 Hypothyroidism, unspecified; G43.909 Migraine, unspecified, not intractable, without status migrainosus; Z87.891 Personal history of nicotine dependence; Z87.440 Personal history of urinary (tract) infections; Z85.43 Personal history of malignant neoplasm of ovary | CPT/HCPCS: 73502 ==

== ENCOUNTER → 2019-04-26 | Outpatient (CLI) | payer OTHER ==
[~2019-04-26] MED LIST changes: +ALBUTEROL SULFATE 2.5 MG/3 ML NEBU. NEB ONE; +DICL50TA4 PO; -HYDR-2758 PO; +HYDR-2761 PO; +HYDR-3164 PO; -HYDR-971 PO
== END | disposition home or self-care (01) ==
LOC: PF 09:43
PROVIDERS: ATTEND Surgery
DX: J45.909 Unspecified asthma, uncomplicated (principal)
CPT/HCPCS: 94060; 94640; 94729; J7613